=== PATIENT | male | born 2005 | race Two or more races ===

== ENCOUNTER 2024-06-14 14:43 | Emergency (ER) | payer OTHER ==
[2024-06-14 14:53] VITALS: BP 115/78; PULSE 110; RESP 16; TEMP 99.8; BMI 25.8
[2024-06-14] MEDS ORDERED: KETOROLAC TROMETHAMINE 30 MG/1 ML VIAL ONE (16:29)
[2024-06-14] MEDS: KETOROLAC TROMETHAMINE 30 MG/1 ML VIAL IM ONE (16:33)
== END 2024-06-14 16:38 | disposition home or self-care (01) ==
LOC: JERFT 14:43
PROC: 3E0133Z Introduction of Anti-inflammatory into Subcutaneous Tissue, Percutaneous Approach (ICD-10-PCS; principal; 2024-06-14)
DX: J10.1 Influenza due to other identified influenza virus with other respiratory manifestations (principal); J06.9 Acute upper respiratory infection, unspecified; Z20.822 Contact with and (suspected) exposure to COVID-19
CPT/HCPCS: 0241U-QW; 99284-25